=== PATIENT | female | born 1990 | race Caucasian/White ===

== ENCOUNTER 2017-12-31 09:09 | Emergency (ER) | payer OTHER, BC ==
[2017-12-31] MEDS: ACETAMINOPHEN 500 MG TAB PO (09:31)
[2017-12-31] MEDS: ONDANSETRON (ODT) 4 MG TAB ODT (09:31)
[2017-12-31] MEDS: KETOROLAC 30 MG INJ IM (09:49)
[2017-12-31 10:03] LABS: ADD UMIC YES; UR ASCORBIC ACID NEGATIVE (NEGATIVE); UR BILIRUBIN (Dip) NEGATIVE (NEGATIVE); UR BLOOD (Dip) 1+ mg/dL (NEGATIVE); UR CLARITY SLIGHTLY CLOUDY (CLEAR); UR COLOR YELLOW (YELLOW); UR GLUCOSE (Dip) NEGATIVE (NEGATIVE); UR KETONES (Dip) NEGATIVE (NEGATIVE); UR LEUKOCYTE ESTERASE (Dip) NEGATIVE Leu/ul (NEGATIVE); UR NITRITE (Dip) NEGATIVE (NEGATIVE); UR RBC 2 /HPF (0-5); UR SPECIFIC GRAVITY (Dip) 1.011 (1.003-1.030); UR SQUAMOUS EPITHELIAL CELL FEW /HPF (FEW); UR TOTAL PROTEIN (Dip) NEGATIVE (NEGATIVE); UR UROBILINOGEN (Dip) NEGATIVE (NEGATIVE); UR WBC 1 /HPF (0-5)
== END 2017-12-31 10:39 | disposition home or self-care (01) ==
LOC: FTE 09:09
DX: R11.10 Vomiting, unspecified (principal)
CPT/HCPCS: 81001; 81025; 96372; 99284-25

== ENCOUNTER 2018-04-29 01:58 | Emergency (ER) | payer OTHER | END 2018-04-29 03:56 | disposition home or self-care (01) | LOC: FTE 01:58 | DX: S60.222A Contusion of left hand, initial encounter (principal); V49.40XA Driver injured in collision with unspecified motor vehicles in traffic accident, initial encounter | CPT/HCPCS: 73130; 73130-LT; 99283-25 ==

== ENCOUNTER 2018-09-08 02:42 | Emergency (ER) | payer OTHER ==
[2018-09-08] MEDS: IBUPROFEN 600 MG TAB PO (04:01)
[2018-09-08] MEDS: ALPRAZOLAM 0.25 MG TAB PO (04:02)
== END 2018-09-08 04:06 | disposition home or self-care (01) ==
LOC: E/R 02:42
DX: F41.9 Anxiety disorder, unspecified (principal)
CPT/HCPCS: 93005; 99283; 99283-25